=== PATIENT | male | born 1960 | race Caucasian/White ===

== ENCOUNTER 2024-12-08 10:27 | Emergency (ER) | payer BC ==
[~2024-12-08] VITALS: Ht 172.7 cm; Wt 69.1 kg
[2024-12-08] MEDS ORDERED: JANUVIA100 MG PO (11:35)
[2024-12-08] MEDS ORDERED: ACTOS15 MG PO (11:35)
[2024-12-08] MEDS ORDERED: SAW PALMETTO 41 EACH (11:35)
[2024-12-08] MEDS ORDERED: GLUCOSAMINE1000 MG PO (11:35)
[2024-12-08] MEDS ORDERED: METFORMIN HCL500 M2 PO (11:35)
[2024-12-08] MEDS ORDERED: IBUPROFEN400 MG PO (11:35)
[2024-12-08] MEDS ORDERED: ROSUVASTATIN CA40 MG (11:35)
[2024-12-08] MEDS ORDERED: ZINC PO (11:35)
[2024-12-08] MEDS ORDERED: OMEGA-31000 MG PO (11:35)
[2024-12-08] MEDS ORDERED: OMEPRAZOLE40 MG PO (11:35)
[2024-12-08] MEDS ORDERED: CRANBERRY400 M1 (11:35)
[2024-12-08] MEDS ORDERED: LISINOPRIL2.5 MG PO (11:35)
[2024-12-08] MEDS ORDERED: PREDNISONE5 MG PO (11:35)
[2024-12-08] MEDS ORDERED: DOXYCYCLINE HY100 MG PO (11:35)
[2024-12-08] MEDS ORDERED: TUMERIC PO (11:35)
[2024-12-08 12:59] VITALS: PULSE 65; RESP 16; TEMP 98.1; O2SAT 100
[2024-12-08] MEDS: BACITRACIN ZINC 0.9GM TP ONE (13:07)
[2024-12-08] MEDS: LIDOCAINE HCL 1% LOCAL INJ 20 ML VIAL INJ ONE (13:07)
== END 2024-12-08 12:59 | disposition home or self-care (01) ==
LOC: FSED 10:47
DX: T81.31XA Disruption of external operation (surgical) wound, not elsewhere classified, initial encounter (principal); I10 Essential (primary) hypertension; E11.9 Type 2 diabetes mellitus without complications; E78.5 Hyperlipidemia, unspecified; K21.9 Gastro-esophageal reflux disease without esophagitis; M54.9 Dorsalgia, unspecified; G89.29 Other chronic pain; M19.09 Primary osteoarthritis, other specified site
CPT/HCPCS: 12002; 99283; J2003